=== PATIENT | male | born 1985 | race Caucasian/White ===

== ENCOUNTER 2017-04-12 12:43 | Observation (INO) ==
--- NOTE | 2017-04-12 13:10 | Emergency Department Note ---
Disposition Clinical Impression: Urolithiasis, Nausea and vomiting Disposition: Admitted As Inpatient Condition: Undetermined General Adult HPI - General Chief complaint: ED Abdominal Pain Stated complaint: Kidney stone,UTI Time Seen by Provider: 04/12/17 13:04 Source: patient Limitations: no limitations - History of Present Illness Pain Scale: 3 - Related Data Home Medications Medication Instructions Recorded Confirmed Sulfamethoxazole/Trimeth DS 1 tab PO BID 04/12/17 04/12/17 [Bactrim DS] Previous Rx's Medication Instructions Recorded Ketorolac [Toradol] 10 mg PO Q6HR #20 tablet 04/10/17 Naproxen [Naprosyn] 500 mg PO BID #14 tablet 04/10/17 Ondansetron ODT [Zofran ODT] 4 mg SL Q6HR #10 tab.rapdis 04/10/17 Promethazine [Phenergan] 12.5 mg PO Q6HR #10 tablet 04/10/17 Tamsulosin [Flomax] 0.4 mg PO DAILY #6 cap.er.24h 04/10/17 Allergies Allergy/AdvReac Type Severity Reaction Status Date / Time No Known Allergies Allergy Verified 02/07/16 06:08 Past Medical History - Past Medical History Medical history: Reports: kidney stones Psychiatric history: Reports: anxiety, depression - Social History Smoking Status: Current every day smoker Smokeless Tobacco Status: No Alcohol use: Reports: rarely Drug use: Reports: marijuana Physical Exam - General Limitations: no limitations General appearance: alert Course Vital Signs Temperature 98.5 F 04/12/17 12:46 Pulse Rate 85 04/12/17 12:46 Respiratory Rate 22 04/12/17 12:46 Blood Pressure 125/73 04/12/17 12:46 O2 Sat by Pulse Oximetry 100 04/12/17 12:46 Temperature 98.1 F 04/12/17 16:16 Pulse Rate 57 04/12/17 16:16 Respiratory Rate 16 04/12/17 16:16 Blood Pressure 118/71 04/12/17 16:16 O2 Sat by Pulse Oximetry 100 04/12/17 15:03 Oxygen Delivery Oxygen Delivery Room Air Medical Decision Making - Lab Data Result diagrams: 04/12/17 13:20 04/12/17 13:20 Lab Results 04/12/17 04/12/17 04/12/17 Range/Units 13:05 13:20 13:20 WBC 11.9 H (4.3-11.1) K/mcL RBC 5.14 (4.19-5.50) M/mcL Hgb 15.3 (12.9-16.9) g/dL Hct 42.7 (37.5-50.1) % MCV 83.1 (83.0-100.0) fL MCH 29.8 (28.0-33.3) pg MCHC 35.8 H (31.6-35.5) g/dL RDW 12.4 (11.5-14.5) % Plt Count 315 (140-400) K/mcL MPV 9.5 (9.4-12.4) fL Immature Gran % 0.7 (0-4) % Seg Neutrophils % 76.6 % Lymphocytes % 15.0 % Monocytes % 5.7 % Eosinophils % 1.6 % Basophils % 0.4 % Neutrophils # 9.1 H (1.6-8.9) K/mcL Lymphocytes # 1.8 (0.6-4.6) K/mcL Monocytes # 0.7 (0.0-1.3) K/mcL Eosinophils # 0.2 (0.0-0.6) K/mcL Basophils # 0.1 (0.0-0.2) K/mcL Sodium 138 (136-145) mEq/L Potassium 3.3 L (3.5-4.5) mEq/L Chloride 104 (98-109) mEq/L Carbon Dioxide 20 (19-29) mEq/L BUN 17 (8-26) mg/dL Creatinine 1.53 H (0.72-1.25) mg/dL Est GFR ( Amer) > 60 (> 60) Est GFR (Non-Af Amer) 53 L (> 60) BUN/Creatinine Ratio 11 (6-26) Glucose 92 (70-99) mg/dL Calculated Osmolality 287 (280-300) Calcium 9.4 (8.6-10.8) mg/dL Total Bilirubin 1.4 H (0.2-1.2) mg/dL AST 20 (5-34) Units/L ALT 18 (0-55) Units/L Alkaline Phosphatase 58 (38-126) Units/L Serum Total Protein 7.6 (6.0-8.3) g/dL Albumin 4.4 (3.5-5.0) g/dL Globulin 3.2 (2.4-3.5) g/dL Albumin/Globulin Ratio 1.4 (1.1-2.2) Urine Color Yellow (Yellow) Urine Clarity Clear (Clear) Urine pH 6.0 (5.0-8.0) pH Units Ur Specific [place] 1.023 (1.010-1.025) Urine Protein Trace (Neg-Trace) mg/dL Urine Glucose (UA) Normal (Normal) mg/dL Urine Ketones >=160 H (Negative) mg/dL Urine Blood Negative (Negative) Urine Nitrite Negative (Negative) Urine Bilirubin Small H (Negative) Urine Urobilinogen Normal (Normal) mg/dL Ur Leukocyte Esterase Negative (Negative) Urine Microscopic RBC 0-3 (0-3) per hpf Urine Microscopic WBC 3-5 H (0-3) per hpf Ur Squamous Epith Cells Moderate H (None-Few) per lpf Urine Bacteria None Seen (None-Few) per hpf Hyaline Casts None Seen (None-Few) per lpf Ur Culture Indicated? NO (NO) Attestation Statement - Attestation Attestation: I examined this patient and my medical decision-making was reviewed with the Resident Physician. I agree with the documented findings, disposition and treatment plan as described except to the extent set forth below. Face to face time provided Patient complains of flank pain. Appears uncomfortable on exam. Symptoms most consistent with renal colic
[2017-04-12] MEDS ORDERED: 0.9 % Sodium Chloride 1,000 ML IVC ONE ×2 (13:13→14:12)
[2017-04-12] MEDS ORDERED: Prochlorperazine 10 MG/2 ML VIAL IVP STA (13:14)
[2017-04-12 13:25] LABS: Bilirubin,Urine Small (Negative); Blood,Urine Negative (Negative); Clarity,Urine Clear (Clear); Color,Urine Yellow (Yellow); Glucose,Urine (UA) Normal (Normal); Ketones,Urine >=160 mg/dL (Negative); Leukocyte Esterase,Urine Negative (Negative); Nitrite,Urine Negative (Negative); Protein,Urine Trace mg/dL (Neg-Trace); Specific Gravity,Urine 1.023 (1.010-1.025); Urobilinogen,Urine Normal (Normal)
[2017-04-12 13:28] LABS: Bacteria,Urine None Seen per hpf (None-Few); Hyaline Casts,Urine None Seen per lpf (None-Few); RBC,Urine 0-3 per hpf (0-3); Squamous Epithelial Cell,Urine Moderate per lpf (None-Few)
--- NOTE | 2017-04-12 13:34 | Emergency Department Note ---
Disposition Clinical Impression: Urolithiasis Qualifiers: Urinary calculus location: ureter Qualified Code(s): N20.1 - Calculus of ureter Nausea and vomiting Qualifiers: Vomiting type: unspecified Vomiting Intractability: intractable Qualified Code( s): R11.2 - Nausea with vomiting, unspecified Disposition: Admitted As Inpatient Condition: Undetermined Forms: ED Satisfaction Letter, Work/School Release Time of Disposition: 14:11 Abdominal Pain HPI - General Chief Complaint: ED Abdominal Pain Stated Complaint: Kidney stone,UTI Time Seen by Provider: 04/12/17 13:04 Source: patient Mode of arrival: ambulatory Limitations: no limitations Nursing Notes Reviewed: Yes Vital Signs Reviewed: Yes - History of Present Illness HPI Narrative: 31-year-old male with history of kidney stone, arrives to [facility] emergency department with complaint of pain now radiating into his left testicular region, worsening nausea. The patient states that a few days ago he was diagnosed with a left distal ureter kidney stone that was 2 mm in size and was sent home on Toradol as well as Phenergan. The patient states that this morning he has been unable to keep any food down because of associated nausea. The patient states that his pain is also changed began radiating down into the region of his left testicle. The patient states this is very different from where he was experiencing this previously. The patient denies any other complaints at this time and is resting comfortably in the bed. The patient does have some tenderness to his left side of his testicle along the epididymis. The patient has no signs of indirect inguinal hernia or orchitis on evaluation. The patient is requesting nausea medication and pain control at this time. Pt Subjective Complaint: abdominal pain Onset (ago): hour(s) (10) Consistency: constant Location: suprapubic Pain Severity: moderate Pain Scale: 7 Quality: stabbing Radiation: other (Left testicle) Improves with: nothing Worsens with: nothing Context: history of similar episodes Associated symptoms: Reports: nausea, vomiting Treatments prior to arrival: prescription analgesics, other (Antiemetics) - Related Data Previous Rx's Medication Instructions Recorded Cyclobenzaprine [Flexeril] 10 mg PO TID #30 tablet 02/07/16 Ibuprofen [Motrin] 600 mg PO TID PRN #30 tab 02/07/16 predniSONE [PredniSONE] 30 mg PO DAILY #5 tablet 02/07/16 OxyCODONE/APAP 5/325 [Percocet 1 each PO Q6HR PRN #7 tablet 07/12/16 5/325 MG] Tamsulosin [Flomax] 0.4 mg PO DAILY #10 capsule 07/12/16 Hydrocodone/Acetaminophen [[place] 1 tab PO Q6H PRN #8 tab 07/21/16 5-325 Tablet] Ondansetron ODT [Zofran ODT] 1 - 2 tab SL Q4HR #20 tab.rapdis 07/21/16 Tamsulosin [Flomax] 0.4 mg PO DAILY 2 Days 07/21/16 Promethazine [Phenergan] 25 mg PO Q8HR #20 tablet 07/22/16 traMADol [Ultram] 100 mg PO TID #20 tablet 07/22/16 Ketorolac [Toradol] 10 mg PO Q6HR #20 tablet 04/10/17 Naproxen [Naprosyn] 500 mg PO BID #14 tablet 04/10/17 Ondansetron ODT [Zofran ODT] 4 mg SL Q6HR #10 tab.rapdis 04/10/17 Promethazine [Phenergan] 12.5 mg PO Q6HR #10 tablet 04/10/17 Sulfamethoxazole/Trimeth DS 1 each PO BID #14 tablet 04/10/17 [Bactrim DS] Tamsulosin [Flomax] 0.4 mg PO DAILY #6 cap.er.24h 04/10/17 Allergies Allergy/AdvReac Type Severity Reaction Status Date / Time No Known Allergies Allergy Verified 02/07/16 06:08 All systems ED: reviewed and negative except as stated. Constitutional: Denies: fever, chills, weakness, weight change Eyes: Denies: eye pain, eye discharge, vision change ENT ED: Reports: as per HPI Cardiovascular: Denies: chest pain, palpitations, dyspnea on exertion, edema, syncope Respiratory: Denies: cough, dyspnea, wheezes, hemoptysis, stridor Gastrointestinal: Reports: abdominal pain, vomiting. Denies: nausea, diarrhea, constipation, hematemesis, melena, hematochezia Genitourinary: Denies: urgency, dysuria, frequency, hematuria Musculoskeletal: Denies: back pain, neck pain, arthralgia, myalgia Integumentary: Denies: rash, abrasion, lesions Neurological: Denies: headache, weakness, numbness, paresthesias, confusion, abnormal gait, vertigo Abdominal Pain PMH - Past Medical History Medical history: Reports: kidney stones Male Surgical History: Reports: orthopedic, other Psychiatric history: Reports: anxiety, depression - Social History Smoking status: Current every day smoker Alcohol use: Reports: rarely Drug use: Reports: marijuana Physical Exam - General Limitations: no limitations General appearance: alert, in no apparent distress - Head Head exam: atraumatic, normocephalic, normal inspection - Eye Eye exam: Present: normal appearance, PERRL, EOMI - ENT ENT exam: normal exam - Neck Neck exam: Present: normal inspection - Chest Chest inspection: Present: normal inspection, symmetric chest wall rise - Respiratory Respiratory exam: Present: normal lung sounds bilaterally - Cardiovascular Cardiovascular exam: Present: regular rate, normal rhythm, normal heart sounds - Abdominal Exam Abdominal exam: Present: soft, Non-Tender. Absent: tenderness, distention, guarding, rebound, rigidity - Male exam: Present: normal inspection, normal testicular lie, circumcised, testicular tenderness (To left) - Extremities Exam Extremities exam: Present: normal inspection, full ROM. Absent: tenderness, pedal edema - Neurological Exam Neurological exam: Present: alert, oriented X3 - Skin Skin exam: Present: warm, dry, intact, normal color Course - Reevaluation(s) Reevaluation #1: The patient's workup here in the emergency department demonstrates an elevation in his creatinine which is new. The patient does have a distal 2 mm ureteral stone on previous CT scan. The patient has not urinated out the stone of her straining. The patient is experiencing uncontrolled nausea and vomiting at this time. This combined with his increase in his creatinine, we will admit the patient to the hospital. We administered 1 L fluid as well as Compazine and Levsin for pain control. The patient history was discussed with Dr. De Los Santos in urology who agreed that the patient can be admitted to his service. The urologist will attempt to continue pushing IV fluids to try to push out the stone and if unsuccessful, the patient will be taken to the operating room tomorrow for a stone extraction. The patient made aware and agrees to plan. Time: 14:11 Vital Signs Temperature 98.5 F 04/12/17 12:46 Pulse Rate 85 04/12/17 12:46 Respiratory Rate 22 04/12/17 12:46 Blood Pressure 125/73 04/12/17 12:46 O2 Sat by Pulse Oximetry 100 04/12/17 12:46 Temperature 98.5 F 04/12/17 12:46 Pulse Rate 66 04/12/17 13:28 Respiratory Rate 18 04/12/17 13:28 Blood Pressure 132/83 04/12/17 13:28 O2 Sat by Pulse Oximetry 100 04/12/17 13:28 Oxygen Delivery Oxygen Delivery Room Air Abdominal Pain - Lab Data Result diagrams: 04/12/17 13:20 04/12/17 13:20 Lab Results 04/12/17 04/12/17 04/12/17 Range/Units 13:05 13:20 13:20 WBC 11.9 H (4.3-11.1) K/mcL RBC 5.14 (4.19-5.50) M/mcL Hgb 15.3 (12.9-16.9) g/dL Hct 42.7 (37.5-50.1) % MCV 83.1 (83.0-100.0) fL MCH 29.8 (28.0-33.3) pg MCHC 35.8 H (31.6-35.5) g/dL RDW 12.4 (11.5-14.5) % Plt Count 315 (140-400) K/mcL MPV 9.5 (9.4-12.4) fL Immature Gran % 0.7 (0-4) % Seg Neutrophils % 76.6 % Lymphocytes % 15.0 % Monocytes % 5.7 % Eosinophils % 1.6 % Basophils % 0.4 % Neutrophils # 9.1 H (1.6-8.9) K/mcL Lymphocytes # 1.8 (0.6-4.6) K/mcL Monocytes # 0.7 (0.0-1.3) K/mcL Eosinophils # 0.2 (0.0-0.6) K/mcL Basophils # 0.1 (0.0-0.2) K/mcL Sodium 138 (136-145) mEq/L Potassium 3.3 L (3.5-4.5) mEq/L Chloride 104 (98-109) mEq/L Carbon Dioxide 20 (19-29) mEq/L BUN 17 (8-26) mg/dL Creatinine 1.53 H (0.72-1.25) mg/dL Est GFR ( Amer) > 60 (> 60) Est GFR (Non-Af Amer) 53 L (> 60) BUN/Creatinine Ratio 11 (6-26) Glucose 92 (70-99) mg/dL Calculated Osmolality 287 (280-300) Calcium 9.4 (8.6-10.8) mg/dL Total Bilirubin 1.4 H (0.2-1.2) mg/dL AST 20 (5-34) Units/L ALT 18 (0-55) Units/L Alkaline Phosphatase 58 (38-126) Units/L Serum Total Protein 7.6 (6.0-8.3) g/dL Albumin 4.4 (3.5-5.0) g/dL Globulin 3.2 (2.4-3.5) g/dL Albumin/Globulin Ratio 1.4 (1.1-2.2) Urine Color Yellow (Yellow) Urine Clarity Clear (Clear) Urine pH 6.0 (5.0-8.0) pH Units Ur Specific [place] 1.023 (1.010-1.025) Urine Protein Trace (Neg-Trace) mg/dL Urine Glucose (UA) Normal (Normal) mg/dL Urine Ketones >=160 H (Negative) mg/dL Urine Blood Negative (Negative) Urine Nitrite Negative (Negative) Urine Bilirubin Small H (Negative) Urine Urobilinogen Normal (Normal) mg/dL Ur Leukocyte Esterase Negative (Negative) Urine Microscopic RBC 0-3 (0-3) per hpf Urine Microscopic WBC 3-5 H (0-3) per hpf Ur Squamous Epith Cells Moderate H (None-Few) per lpf Urine Bacteria None Seen (None-Few) per hpf Hyaline Casts None Seen (None-Few) per lpf Ur Culture Indicated? NO (NO)
[2017-04-12 13:35] LABS: Basophils # 0.1 K/mcL (0.0-0.2); Basophils % 0.4 %; Eosinophils # 0.2 K/mcL (0.0-0.6); Eosinophils % 1.6 %; Hematocrit 42.7 % (37.5-50.1); Hemoglobin 15.3 g/dL (12.9-16.9); Immature Granulocytes % 0.7 % (0-4); Lymphocytes # 1.8 K/mcL (0.6-4.6); Mean Corpuscular HGB Conc 35.8 g/dL (31.6-35.5); Mean Corpuscular Hemoglobin 29.8 pg (28.0-33.3); Mean Corpuscular Volume 83.1 fL (83.0-100.0); Mean Platelet Volume 9.5 fL (9.4-12.4); Monocytes # 0.7 K/mcL (0.0-1.3); Monocytes % 5.7 %; Neutrophils # 9.1 K/mcL (1.6-8.9); Platelet Count 315 K/mcL (140-400); Red Blood Count 5.14 M/mcL (4.19-5.50); Red Cell Distribution Width 12.4 % (11.5-14.5); Segmented Neutrophils % 76.6 %
[2017-04-12] MEDS ORDERED: Hyoscyamine SL 0.125 MG TAB.SUBL SL STA (13:42)
[2017-04-12 13:53] LABS: Alanine Aminotransferase 18 Units/L (0-55); Albumin 4.4 g/dL (3.5-5.0); Albumin/Globulin Ratio 1.4 (1.1-2.2); Alkaline Phosphatase 58 Units/L (38-126); Aspartate Amino Transferase 20 Units/L (5-34); BUN/Creatinine Ratio 11 (6-26); Bilirubin,Total 1.4 mg/dL (0.2-1.2); Blood Urea Nitrogen 17 mg/dL (8-26); Calcium 9.4 mg/dL (8.6-10.8); Carbon Dioxide 20 mEq/L (19-29); Chloride 104 mEq/L (98-109); Globulin 3.2 g/dL (2.4-3.5); Glucose 92 mg/dL (70-99); Osmolality,Calculated 287 (280-300); Potassium 3.3 mEq/L (3.5-4.5); Sodium 138 mEq/L (136-145); Total Protein 7.6 g/dL (6.0-8.3); eGFR For African Americans > 60 (> 60); eGFR For Non-African Americans 53 (> 60)
[2017-04-12] MEDS ORDERED: *HR* HYDROmorphone (PF) 1 MG/ML SYRINGE IVP ONE (14:54)
[2017-04-12] MEDS ORDERED: Naloxone 0.4 MG/ML INJ IVP PRN (15:36)
[2017-04-12] MEDS ORDERED: *HR* Morphine 2 MG/ML SYRINGE IVP PRN (15:36)
[2017-04-12] MEDS ORDERED: *HR* Promethazine 25 MG/ML VIAL IVP PRN (15:36)
[2017-04-12] MEDS ORDERED: *HR* HYDROmorphone (PF) 1 MG/ML SYRINGE IVP PRN (15:36)
--- NOTE | 2017-04-12 15:43 | Urology History & Physical ---
Date of Encounter: 04/12/17 Time of Encounter: 15:41 Assessment and Plan (1) Ureteral stone with hydronephrosis Current Visit: Yes Status: Acute will attempt to have pt pass the stone with IVF and tamsulosin. if no passage may need surgical intervention tomorrow. strain urine (2) Acute renal insufficiency Current Visit: Yes Status: Acute IVF. renal insufficiency likely from ureteral stone and N/V (3) Nausea and vomiting Current Visit: Yes Status: Acute zofran and phenergan Qualifiers: Vomiting type: unspecified Vomiting Intractability: intractable Qualified Code(s): R11.2 - Nausea with vomiting, unspecified History of Present Illness Chief complaint: flank pain HPI: Mr. Jackson is a 31 year old male with 2 recent ER visits for severe flank pain and N/V. no improvement. first CT scan showed a 2 mm distal ureteral stone. Past Med Surg Social Fam HX - Past Medical History Medical history: kidney stones Psychiatric history: anxiety, depression - Social History Smoking Status: Current every day smoker Smokeless Tobacco Status: No Alcohol use: rarely Drug use: marijuana Medications and Allergies Ketorolac [Toradol] 10 mg PO Q6HR #20 tablet 04/10/17 [Rx] Naproxen [Naprosyn] 500 mg PO BID #14 tablet 04/10/17 [Rx] Ondansetron ODT [Zofran ODT] 4 mg SL Q6HR #10 tab.rapdis 04/10/17 [Rx] Promethazine [Phenergan] 12.5 mg PO Q6HR #10 tablet 04/10/17 [Rx] Tamsulosin [Flomax] 0.4 mg PO DAILY #6 cap.er.24h 04/10/17 [Rx] Sulfamethoxazole/Trimeth DS [Bactrim DS] 1 tab PO BID 04/12/17 [History] Allergies No Known Allergies Allergy (Verified 02/07/16 06:08) Review of Systems - Constitutional no chills, no fever(s) - EENT Nose, mouth and throat: no dizziness - Cardiovascular no chest pain - Respiratory no cough - Gastrointestinal abdominal pain, nausea, vomiting - Genitourinary flank pain - Musculoskeletal back pain - Integumentary no erythema - Neurological no confusion - Psychiatric no anxiety - Hematologic/Lymphatic no easy bleeding - Allergic/Immunologic no throat swelling Exam Initial Vital Signs Temp Pulse Resp BP Pulse Ox 98.5 F 85 22 125/73 100 04/12/17 12:46 04/12/17 12:46 04/12/17 12:46 04/12/17 12:46 04/12/17 12:46 - General physical appearance Present: well developed, no distress - Eyes Present: PERRL - ENT Present: normal nares - Neck Present: no masses - Respiratory Present: normal respiratory effort - Abdomen Abdomen: Present: soft - Integumentary Present: no rash - Neurologic Present: normal coordination. Absent: disoriented, confused Urology Results - Labs 04/12/17 13:20 04/12/17 13:20 Abnormal lab results WBC 11.9 K/mcL (4.3-11.1) H 04/12/17 13:20 MCHC 35.8 g/dL (31.6-35.5) H 04/12/17 13:20 Neutrophils # 9.1 K/mcL (1.6-8.9) H 04/12/17 13:20 Potassium 3.3 mEq/L (3.5-4.5) L 04/12/17 13:20 Creatinine 1.53 mg/dL (0.72-1.25) H 04/12/17 13:20 Est GFR (Non-Af Amer) 53 (> 60) L 04/12/17 13:20 Total Bilirubin 1.4 mg/dL (0.2-1.2) H 04/12/17 13:20 Urine Ketones >=160 mg/dL (Negative) H 04/12/17 13:05 Urine Bilirubin Small (Negative) H 04/12/17 13:05 Urine Microscopic WBC 3-5 per hpf (0-3) H 04/12/17 13:05 Ur Squamous Epith Cells Moderate per lpf (None-Few) H 04/12/17 13:05 All other labs normal.
[2017-04-12] MEDS: 0.9 % Sodium Chloride 1,000 ML IVC SCH (16:41)
[2017-04-12] MEDS: Ondansetron 4 MG/2 ML VIAL IVP PRN (17:05)
[2017-04-12] MEDS: *HR* HYDROcodone/Acet 5/325 mg TABLET PO PRN (22:42)
[2017-04-13] MEDS: 0.9 % Sodium Chloride 1,000 ML IVC SCH ×2 (00:10→06:45)
--- NOTE | 2017-04-13 06:59 | Urology Progress Note ---
Date of Encounter: 04/13/17 Time of Encounter: 06:58 - Assessment and Plan (1) Ureteral stone with hydronephrosis Current Visit: Yes Status: Acute Assessment and plan: patient still has symptoms and has probably not passed the stone. will proceed with ureteroscopic stone extraction today. (2) Acute renal insufficiency Current Visit: Yes Status: Acute (3) Nausea and vomiting Current Visit: Yes Status: Acute Qualifiers: Vomiting type: unspecified Vomiting Intractability: intractable Qualified Code(s): R11.2 - Nausea with vomiting, unspecified Progress Note Subjective: still having pain, nausea Objective Initial Vital Signs Temp Pulse Resp BP Pulse Ox 98.5 F 85 22 125/73 100 04/12/17 12:46 04/12/17 12:46 04/12/17 12:46 04/12/17 12:46 04/12/17 12:46 - General physical appearance Present: well developed, no distress - Labs 04/12/17 13:20 04/12/17 13:20 Consult Discharge Plan - Plan Referrals: NO,PCP [Primary Care Provider] -
[2017-04-13] MEDS: Ondansetron 4 MG/2 ML VIAL IVP PRN (08:14)
[2017-04-13] MEDS: *HR* HYDROcodone/Acet 5/325 mg TABLET PO PRN (08:14)
--- NOTE | 2017-04-13 10:37 | Anesthesia Evaluation PreOp ---
Date of Encounter: 04/13/17 Time of Encounter: 10:33 - Past History Planned Operation: L-ureteral stone extraction w/ Laser Cardiac History: Denies any Significant Hx Pulmonary History: Smoker (1ppd x 13 yrs) MEMORANDUM STATEMENT CLERK History: Denies Any Significant HX Other Medical History: Renal (FAISAL w/ureteral stone & hydronephrosis) Anesthesia History: No Prior Anesthetic Complications, Past Anesthesia (ACL repair) Alcohol Use: rarely Drug use: marijuana Medications and Allergies Ketorolac [Toradol] 10 mg PO Q6HR #20 tablet 04/10/17 [Rx] Naproxen [Naprosyn] 500 mg PO BID #14 tablet 04/10/17 [Rx] Ondansetron ODT [Zofran ODT] 4 mg SL Q6HR #10 tab.rapdis 04/10/17 [Rx] Promethazine [Phenergan] 12.5 mg PO Q6HR #10 tablet 04/10/17 [Rx] Tamsulosin [Flomax] 0.4 mg PO DAILY #6 cap.er.24h 04/10/17 [Rx] Sulfamethoxazole/Trimeth DS [Bactrim DS] 1 tab PO BID 04/12/17 [History] Allergies No Known Allergies Allergy (Verified 02/07/16 06:08) - Meds/Allergy Pre-op Review Medications Reviewed: Yes Allergies Reviewed: Yes Beta Blockers on Current Med List: No Anesthesia Results - Labs 04/12/17 13:20 04/12/17 13:20 Anesthesia Exam Pt seen/evaluated, R&B discussed, questions answered and consent obtained. - MD Arturo Height: 6' Weight: 226#, BMI = 31 NPO (# of Hours): MNoc - HEENT Pupil (Motor): Pupils equal, EOMI Mallampati: II Teeth: Missing, Poor dentition (multiple missing, Front L-upper tooth cracked) Oral Opening: Greater than 3 - MEMORANDUM STATEMENT CLERK LOC: Oriented MEMORANDUM STATEMENT CLERK Motor: Normal RUE, Normal LUE, Normal RLE, Normal LLE, Normal Face MEMORANDUM STATEMENT CLERK Sensory: Normal: RUE, LUE, RLE, LLE, Face - Cardiac Rhythm: Regular Murmur: None - Pulmonary Breath Sounds: bilateral Clear Respiratory Effort: Symmetrical Anesthesia Assess/Plan ASA Score: 2 (FAISAL, daily smoker, Marijuana) Modified Ivan Scale for Level of Consciousness: Cooperative, oriented, and tranquil Anesthetic Plan: General Monitoring Plan: Standard Monitors Recovery Plan: PACU Anes Supervising Prov Stmt: Pt seen/evaluated, R&B discussed, questions answered and consent obtained. Cara Morris MD
[2017-04-13] MEDS ORDERED: *HR* Promethazine 25 MG/ML VIAL IVP PRN ×2 (10:41→13:13)
[2017-04-13] MEDS ORDERED: *HR* Labetalol 20 MG/4 ML SYRINGE IVP PRN (10:41)
[2017-04-13] MEDS ORDERED: *HR* HYDROmorphone (PF) 1 MG/ML SYRINGE IVP PRN ×2 (10:41→13:13)
[2017-04-13] MEDS ORDERED: Famotidine 20 MG/2 ML VIAL IVP ONE (10:43)
[2017-04-13] MEDS ORDERED: Metoclopramide 10 MG/2 ML VIAL IVP ONE (10:43)
[2017-04-13] MEDS ORDERED: Acetaminophen IV 1,000 MG/100 ML INFUS..BTL IVPB ONE (10:44)
[2017-04-13] MEDS ORDERED: Gabapentin 300 MG CAPSULE PO STA (10:44)
[2017-04-13] MEDS ORDERED: Famotidine 20 MG/2 ML VIAL ONE (11:30)
[2017-04-13] MEDS ORDERED: Metoclopramide 10 MG/2 ML VIAL ONE (11:30)
[2017-04-13] MEDS ORDERED: *HR* FentaNYL (PF) 100 MCG/2 ML VIAL ONE (11:34)
[2017-04-13] MEDS ORDERED: *HR* Midazolam HCl 2 MG/2 ML VIAL ONE (11:34)
[2017-04-13] MEDS ORDERED: Lidocaine -MPF 4% 5 ML AMPUL ONE (12:05)
[2017-04-13] MEDS ORDERED: *HR* Succinylcholine 200 MG/10 ML VIAL IVP ONE (12:05)
[2017-04-13] MEDS ORDERED: Ondansetron 4 MG/2 ML VIAL ONE (12:05)
[2017-04-13] MEDS ORDERED: Lidocaine -MPF 2% 2 ML VIAL ONE (12:05)
[2017-04-13] MEDS ORDERED: Dexamethasone 4 MG/ML VIAL ONE (12:05)
[2017-04-13] MEDS ORDERED: *HR* Propofol 200 MG/20 ML VIAL IVP ONE (12:05)
[2017-04-13] MEDS ORDERED: *HR* Rocuronium Bromide 50 MG/5 ML VIAL ONE (12:05)
--- NOTE | 2017-04-13 12:10 | Discharge Summary ---
Date of Encounter: 04/13/17 Time of Encounter: 12:08 - Discharge Diagnosis (1) Urolithiasis Priority: Primary Status: Acute Qualifiers: Urinary calculus location: ureter Qualified Code(s): N20.1 - Calculus of ureter - Discharge Medications Prescriptions: HYDROcodone/Acet 5/325 mg [[place] 5-325 mg] 1 tab PO Q4HR PRN #15 tab PRN Reason: Mild Pain Oxybutynin [Ditropan] 5 mg PO TID PRN #20 tablet PRN Reason: bladder spasms Home Medications: Naproxen [Naprosyn] 500 mg PO BID #14 tablet 04/10/17 [Rx] Ondansetron ODT [Zofran ODT] 4 mg SL Q6HR #10 tab.rapdis 04/10/17 [Rx] HYDROcodone/Acet 5/325 mg [[place] 5-325 mg] 1 tab PO Q4HR PRN #15 tab 04/13/17 [ Rx] Oxybutynin [Ditropan] 5 mg PO TID PRN #20 tablet 04/13/17 [Rx] Allergies/Adverse Reactions: Allergies No Known Allergies Allergy (Verified 02/07/16 06:08) Procedures and tests throughout hospitalization: Left ureteroscopic stone extraction on 04/13/2017 Date of admission: 04/12/17 14:47 Primary care physician: PCP NO Discharging clinician: Dann Higginbotham Anticipated date of discharge: 04/13/17 - Patient Status Disposition: Home, Self-Care Condition: Good Overall status at discharge: patient is progressing back to baseline - Discharge Instructions Follow Up With: NO,PCP [Primary Care Provider] - David De Los Santos MD [Partnered Physician] - (2-3 weeks ) - Diet and Activity Activity: increase activity as tolerated Diet: advance to your usual diet - Hospital Course Hospital course: Mr. Jackson is a 31 year old male was brought into the hospital secondary to left distal ureteral stone. Patient failed to pass his stone. He was taken to the operating room where stone was removed and stent was placed. Patient recovered well before was discharged home. Time spent discussing smoking cessation with patient: 3 to 10 minutes - Time Spent with Patient Total time spent providing and/or coordinating discharge services: Less than 30 minutes Exam Initial Vital Signs Temp Pulse Resp BP Pulse Ox 98.5 F 85 22 125/73 100 04/12/17 12:46 04/12/17 12:46 04/12/17 12:46 04/12/17 12:46 04/12/17 12:46 - General physical appearance Present: well developed
--- NOTE | 2017-04-13 12:13 | Operative Note ---
Date of procedure: 04/13/17 Pre-op diagnosis: left distal ureteral stone Post-op diagnosis: same Procedure: Left ureteroscopic laser lithotripsy of stone, left ureteroscopic basket retrieval stone fragment, left 4.8 x 28 cm ureteral stent placement Anesthesia: PRASHANT Surgeon: Dann Higginbotham Specimen: Left ureteral stone Condition: stable Disposition: PACU Procedure in Detail: The patient was prepped and draped in normal sterile fashion after being placed in lithotomy position. I then inserted the cystoscope into the patient's bladder. I then cannulated the left ureter with a sensor wire. I then placed the semirigid ureteroscope into the ureter. Once I encountered the stone, I used the holmium laser to fragment the stone into multiple small pieces. I then used a Nitinol tipless basket to remove all stone fragments from the patient's ureter. Once this was done, the ureter was surveyed with no further stones seen. I then back fed a 4.8x28cm ureteral stent into place, with good curl seen in the kidney and in the bladder. This was placed using fluoroscopic guidance. A string was left for easy removal. The procedure was ended.
[2017-04-13] MEDS ORDERED: 0.9 % Sodium Chloride 1,000 ML IVC SCH (13:13)
[2017-04-13] MEDS ORDERED: *HR* HYDROcodone/Acet 5/325 mg TABLET PO PRN (13:13)
[2017-04-13] MEDS ORDERED: Ondansetron 4 MG/2 ML VIAL IVP PRN (13:13)
--- NOTE | 2017-04-13 13:14 | Anesthesia Evaluation Post Op ---
Date of Encounter: 04/13/17 Time of Encounter: 13:05 - Vital Signs Vital Signs: Vital Signs/O2 Sat/Glucose, Most Recent Temp Pulse Resp BP Pulse Ox 97.2 F L 76 16 115/81 98 04/13/17 12:57 04/13/17 12:57 04/13/17 12:57 04/13/17 12:57 04/13/17 12:57 - Lungs Lungs: Clear Ascult./Percussion - Airway Airway: Non-obstructed - Cardiovascular Regular Rate - Mental Status Mental Status: Alert & Oriented, Answers Appropriately - Pain Pain Scale: 0 Pain Scale used: Numeric (1 - 10) - Nausea Vomiting Nausea Vomiting: Not Present - Hydration Hydration: Tolerates oral liquids - Discharge PostOp Status: Transfer Patient to floor
[2017-04-13 16:39] VITALS: BP 113/72
== END 2017-04-13 17:07 | disposition home or self-care (01) ==
LOC: 3BNU 12:43 → EMEROO 12:43 → 3BNU 16:02
PROVIDERS: ADMIT Urology; ATTEND Urology